=== PATIENT | male | born 1940 | race Caucasian/White ===

== ENCOUNTER 2017-01-31 16:22 | Emergency (ER) | payer MEDICARE, OTHER ==
[~2017-01-31] VITALS: Ht 172.7 cm; Wt 77.1 kg
[~2017-01-31 16:22] MED LIST: ACET325T16 PO; AMLO10TA2 PO; AMLO5TAB2 PO; AMOX1TAB61 PO; ATOR40TA PO; CHOL100013 PO; CLIN-44 PO; FOLI0.8T21 PO; FOLI1TAB16 PO; FURO-68 PO; HYDR-2678 PO; IBUP-1027 PO; INSU100V13 SQ; LATA2.5D3 EACHEYE; LOSA25TA4 PO; LOSA50TA6 PO; MECL12.52 PO; METO25TA9 PO; OMEG1CAP38 PO; POLY255P PO; [UNRECOGNIZED DRUG - OTHER] PO
[2017-01-31] MEDS ORDERED: FURO20TA3 PO (17:55)
--- NOTE | 2017-01-31 18:04 | PHYS DOC ---
Past Medical History Past Medical History: Diabetes-Type II, High Cholesterol, Hypertension Additional Past Medical Histor: "brain bleed" 12/2015 Past Surgical History: Coronary Bypass Surgery, Tonsillectomy Alcohol Use: None Drug Use: None Adult General Chief Complaint Chief Complaint: NAUSEA/VOMITING/DIARRHA HPI HPI Patient is a 76 year old male who presents with complaint of dizziness. The patient states that he had dizziness that started this morning, causing him to have difficulty with his balance. Patient states he had associated nausea and vomiting earlier today. Patient states currently his nausea and vomiting has resolved. Patient states that his dizziness has improved. 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 Patient has had difficulty with balance since his stroke. The patient states that he has a cane at home but he typically walks unassisted. Patient denies any headache, loss of vision, difficulty with speech or swallowing, or unilateral weakness. Patient states that his dizziness would worsen when he turned his head or tried to stand up too quickly. Review of Systems Review of Systems Constitutional: Dizziness, currently improved, Denies fever or chills [] Eyes: Denies change in visual acuity, redness, or eye pain [] HENT: Denies nasal congestion or sore throat [] Respiratory: Denies cough or shortness of breath [] Cardiovascular: No additional information not addressed in HPI [] GI: Nausea and vomiting, currently resolved, denies abdominal pain, bloody stools or diarrhea [] : Denies dysuria or hematuria [] Musculoskeletal: Denies back pain or joint pain [] Integument: Denies rash or skin lesions [] Neurologic: Denies headache, focal weakness or sensory changes [] Current Medications Current Medications Current Medications Medications (Trade) Dose Ordered Sig/Ирина Start Time Stop Time Status Last Admin Dose Admin Sodium Chloride (Iv Sodium Chloride 0.9% 500ml Bag) 500 ml @ 500 mls/hr 1X ONCE 01/31/17 18:15 01/31/17 19:14 DC 01/31/17 18:39 500 MLS/HR Allergies Allergies Allergies Coded Allergies Type Severity Reaction Last Updated Verified amiodarone Allergy Intermediate Hives 04/25/16 Yes ciprofloxacin Allergy Intermediate 03/14/16 Yes dofetilide Allergy Intermediate 03/14/16 Yes glimepiride Allergy Intermediate Photosensitivity 04/25/16 Yes Physical Exam Physical Exam Constitutional: Alert, afebrile, no acute distress. [] HENT: Normocephalic, atraumatic, bilateral external ears normal, oropharynx moist, no oral exudates, nose normal. [] Eyes: PERRLA, EOMI, conjunctiva normal, no discharge. [] Neck: Normal range of motion, no tenderness, supple, no stridor. [] Cardiovascular:Heart rate regular rhythm, no murmur [] Lungs & Thorax: Bilateral breath sounds clear to auscultation [] Abdomen: Bowel sounds normal, soft, no tenderness, no masses, no pulsatile masses. [] Skin: Warm, dry, no erythema, no rash. [] Back: No tenderness, no CVA tenderness. [] Extremities: No tenderness, no cyanosis, no clubbing, ROM intact, no edema. [] Neurologic: Alert and oriented X 3, normal motor function, normal sensory function, no focal deficits noted. [] Current Patient Data Vital Signs Vital Signs Date Time Temp Pulse Resp B/P Pulse Ox O2 Delivery O2 Flow Rate FiO2 01/31/17 20:45 85 21 139/64 98 Room Air 01/31/17 17:10 97.7 97.7 Lab Values Laboratory Tests Test 01/31/17 17:25 01/31/17 18:40 White Blood Count 9.5x10^3/uL (4.0-11.0) Red Blood Count 3.77x10^6/uL (4.30-5.70) L Hemoglobin 11.9g/dL (13.0-17.5) L Hematocrit 35.7% (39.0-53.0) L Mean Corpuscular Volume 95fL (79-100) Mean Corpuscular Hemoglobin 32pg (25-35) Mean Corpuscular Hemoglobin Concent 33g/dL (31-37) Red Cell Distribution Width 13.9% (11.5-14.5) Platelet Count 158x10^3/uL (140-400) Neutrophils (%) (Auto) 87% (31-73) H Lymphocytes (%) (Auto) 9% (24-48) L Monocytes (%) (Auto) 3% (0-9) Eosinophils (%) (Auto) 0% (0-3) Basophils (%) (Auto) 0% (0-3) Neutrophils # (Auto) 8.3x10^3uL (1.8-7.7) H Lymphocytes # (Auto) 0.9x10^3/uL (1.0-4.8) L Monocytes # (Auto) 0.3x10^3/uL (0.0-1.1) Eosinophils # (Auto) 0.0x10^3/uL (0.0-0.7) Basophils # (Auto) 0.0x10^3/uL (0.0-0.2) Segmented Neutrophils % 74% (35-66) H Band Neutrophils % 7% (0-9) Lymphocytes % 11% (24-48) L Atypical Lymphocytes % (Manual) 2% (0-0) H Monocytes % 5% (0-10) Basophils % 1% (0-3) Platelet Estimate Adequate (ADEQUATE) Giant Platelets Occ Sodium Level 140mmol/L (136-145) Potassium Level 3.8mmol/L (3.5-5.1) Chloride Level 101mmol/L (98-107) Carbon Dioxide Level 29mmol/L (21-32) Anion Gap 10 (6-14) Blood Urea Nitrogen 32mg/dL (8-26) H Creatinine 1.3mg/dL (0.7-1.3) Estimated GFR (Cockcroft-Gault) 53.4 BUN/Creatinine Ratio 25 (6-20) H Glucose Level 207mg/dL (70-99) H Calcium Level 9.5mg/dL (8.5-10.1) Magnesium Level 0.1mg/dL (1.8-2.4) L Total Bilirubin 0.4mg/dL (0.2-1.0) Aspartate Amino Transferase (AST) 22U/L (15-37) Alanine Aminotransferase (ALT) 33U/L (16-63) Alkaline Phosphatase 85U/L (46-116) Total Protein 9.1g/dL (6.4-8.2) H Albumin 3.9g/dL (3.4-5.0) Albumin/Globulin Ratio 0.8 (1.0-1.7) L Urine Collection Type Unknown Urine Color Yellow Urine Clarity Clear Urine pH 7.0 Urine Specific [place] 1.010 Urine Protein 100mg/dL (NEG-TRACE) Urine Glucose (UA) Negativemg/dL (NEG) Urine Ketones (Stick) Tracemg/dL (NEG) Urine Blood Negative (NEG) Urine Nitrite Negative (NEG) Urine Bilirubin Negative (NEG) Urine Urobilinogen Dipstick 0.2mg/dL (0.2 mg/dL) Urine Leukocyte Esterase Negative (NEG) Urine RBC Occ/HPF (0-2) Urine WBC 0/HPF (0-4) Urine Squamous Epithelial Cells Occ/LPF Urine Bacteria 0/HPF (0-FEW) Laboratory Tests 01/31/17 17:25 Laboratory Tests 01/31/17 17:25 EKG EKG Interpreted by me: Heart rate 90, atrial fibrillation, right bundle branch block , no acute ST/T-wave abnormalities present [] Radiology/Procedures Radiology/Procedures [facility] [address] [place] [address] IMAGING REPORT Signed PATIENT: ALEJANDRINA GRAY ACCOUNT: [id number] : 1940 LOCATION: ER AGE: 76 SEX: M EXAM STATUS: REG ER ORD. PHYSICIAN: JOSE L REYES MD REASON: dizziness, history of intracerebral hemorrhage PROCEDURE: HEAD WO CONTRAST INDICATION: 76-year-old male with dizziness, history of intra cerebral hemorrhage. COMPARISON: August 29, 2016 TECHNIQUE: Axial, noncontrast CT images obtained through the head. One or more of the following individualized dose reduction techniques were utilized for this examination: 1. Automated exposure control; 2. Adjustment of the mA and/or kV according to patient size; 3. Use of iterative reconstruction technique. FINDINGS: No acute intracranial process is identified, specifically no acute blood products, midline shift, mass effect or extra-axial fluid collections. Ventricles and sulci appear appropriate for patient's age. Basilar cisterns are maintained. Scattered periventricular and subcortical white matter low attenuation is re-demonstrated, suggestive of chronic microvascular ischemia. Probable lacunar infarct re-demonstrated in the right basal ganglia/subinsular region. The visualized paranasal sinuses are clear. Mastoid air cells are clear. No calvarial fracture is present. Overlying scalp is intact. IMPRESSION: No acute intracranial process or change from prior exam. Electronically signed by: Kylie Swan (Jan 31, 2017 18:38:26) DICTATED and SIGNED BY: KYLIE SWAN MD DATE: 01/31/17 1838 CC: JOSE L REYES MD; SHANKAR LORA ~ [] Course & Med Decision Making Course & Med Decision Making Pertinent Labs and Imaging studies reviewed. (See chart for details) Patient was given IV fluids in the emergency department. The patient's lab work shows mild dehydration and elevated blood sugar of 207. Patient states that he is currently on insulin therapy for diabetes and has an for him at home to treat his blood sugar. The patient states that he would like to go home. The patient ambulated in the emergency department without difficulty. Patient's also stated she felt comfortable taking the patient home at this time. I recommended that they follow up with the patient's primary doctor in 2-3 days and return to emergency department for any worsening symptoms. Patient was understanding and in agreement with treatment plan. Dragon Disclaimer Dragon Disclaimer This electronic medical record was generated, in whole or in part, using a voice recognition dictation system. Departure Departure Impression: Primary Impression: Dizziness Additional Impressions: Nausea and vomiting Dehydration Type 2 diabetes mellitus Disposition: 01 HOME, SELF-CARE Condition: IMPROVED Referrals: SHANKAR LORA (PCP) Patient Instructions: Dizziness, Nausea and Vomiting Additional Instructions: Follow-up in 2-3 days with your primary doctor. Return to emergency department for any worsening symptoms. Problem Qualifiers Additional Impressions: Nausea and vomiting Vomiting type: unspecified Vomiting Intractability: non-intractable Qualified Code: R11.2 - Nausea with vomiting, unspecified Type 2 diabetes mellitus Diabetes mellitus complication status: with hyperglycemia Diabetes mellitus shelter insulin use: with watermelon inspector use Qualified Code: E11.65 - Type 2 diabetes mellitus with hyperglycemia JOSE L REYES MD Jan 31, 2017 18:04
[2017-01-31] MEDS ORDERED: IV NORMAL SALINE 500ML BAG 500 ML IV ONE (18:15)
[2017-01-31 18:16] LABS: BASO % 0 % (0-3); EOS % 0 % (0-3); HEMATOCRIT 35.7 % (39.0-53.0); HEMOGLOBIN 11.9 g/dL (13.0-17.5); LYMPH # 0.9 x10^3/uL (1.0-4.8); LYMPH % 9 % (24-48); MEAN CORPUSCULAR HEMOGLOBIN 32 pg (25-35); MEAN CORPUSCULAR HGB CONC 33 g/dL (31-37); MEAN CORPUSCULAR VOLUME 95 fL (79-100); MONO % 3 % (0-9); NEUT % 87 % (31-73); PLATELET COUNT 158 x10^3/uL (140-400); RED BLOOD COUNT 3.77 x10^6/uL (4.30-5.70); RED CELL DISTRIBUTION WIDTH 13.9 % (11.5-14.5); WHITE BLOOD COUNT 9.5 x10^3/uL (4.0-11.0)
[2017-01-31 18:29] LABS: CALCIUM 9.5 mg/dL (8.5-10.1); CREATININE 1.3 mg/dL (0.7-1.3); GFR 53.4; POTASSIUM 3.8 mmol/L (3.5-5.1)
[2017-01-31 18:34] LABS: MAGNESIUM 0.1 mg/dL (1.8-2.4); TOTAL BILIRUBIN 0.4 mg/dL (0.2-1.0); TOTAL PROTEIN 9.1 g/dL (6.4-8.2)
[2017-01-31 18:39] LABS: % BASOS 1 % (0-3); PLT ESTIMATE ADEQUATE (ADEQUATE)
--- NOTE | 2017-01-31 18:39 | RAD ---
INDICATION: 76-year-old male with dizziness, history of intra cerebral hemorrhage. COMPARISON: August 29, 2016 TECHNIQUE: Axial, noncontrast CT images obtained through the head. One or more of the following individualized dose reduction techniques were utilized for this examination: 1. Automated exposure control; 2. Adjustment of the mA and/or kV according to patient size; 3. Use of iterative reconstruction technique. FINDINGS: No acute intracranial process is identified, specifically no acute blood products, midline shift, mass effect or extra-axial fluid collections. Ventricles and sulci appear appropriate for patient's age. Basilar cisterns are maintained. Scattered periventricular and subcortical white matter low attenuation is re-demonstrated, suggestive of chronic microvascular ischemia. Probable lacunar infarct re-demonstrated in the right basal ganglia/subinsular region. The visualized paranasal sinuses are clear. Mastoid air cells are clear. No calvarial fracture is present. Overlying scalp is intact. IMPRESSION: No acute intracranial process or change from prior exam. Electronically signed by: Ronda Swan (Jan 31, 2017 18:38:26)
[2017-01-31 18:41] LABS: ALBUMIN 3.9 g/dL (3.4-5.0); ALBUMIN/GLOBULIN RATIO 0.8 (1.0-1.7)
[2017-01-31 18:49] LABS: BILIRUBIN,URINE NEGATIVE (NEG); GLUCOSE,URINE NEGATIVE (NEG); NITRITE,URINE NEGATIVE (NEG); PROTEIN,URINE 100 mg/dL (NEG-TRACE); UROBILINOGEN,URINE 0.2 mg/dL (0.2 mg/dL)
[2017-01-31 18:56] LABS: BACTERIA,URINE 0 /HPF (0-FEW); RBC,URINE OCC /HPF (0-2); SQUAMOUS EPITHELIAL CELL,UR OCC /LPF; WBC,URINE 0 /HPF (0-4)
[2017-01-31 20:45] VITALS: BP 139/64
--- NOTE | 2017-02-01 06:08 | EKG ---
[facility] [address] [place] [address] Test Date: 2017-01-31 Test Time: 17:36:44 Pat Name: ALEJANDRINA GRAY Department: Room: Gender: M Winder Helper: : 1940 Requested By: JOSE L REYES Order Number: [id number] Reading MD: Measurements Intervals [place] Rate: 90 P: 180 DC: 256 QRS: -61 QRSD: 144 T: -13 QT: 406 QTc: 501 Interpretive Statements SINUS RHYTHM PROLONGED DC INTERVAL ABNORMAL LEFT AXIS DEVIATION LEFT ANTERIOR FASCICULAR BLOCK RIGHT BUNDLE BRANCH BLOCK BIFASCICULAR BLOCK RVH WITH REPOLARIZATION ABNORMALITY QRS(T) CONTOUR ABNORMALITY CONSIDER ANTEROSEPTAL MYOCARDIAL DAMAGE RI6.01 Unconfirmed report No previous ECG available for comparison
--- NOTE | 2017-02-01 08:43 | RAD ---
Portable chest, 01/31/2017: History: Dizziness and vomiting Comparison is made to a study from 04/25/2016. There has been a previous median sternotomy. The heart size and pulmonary vascularity are normal. There is calcific plaquing of the aorta. There is minimal parenchymal scarring. No pulmonary infiltrate is seen. There is no evidence of pleural fluid. IMPRESSION: 1. Aortic atherosclerosis. 2. No acute cardiopulmonary abnormality is detected.
== END 2017-01-31 20:55 | disposition home or self-care (01) ==
LOC: ER 16:22
DX: R42 Dizziness and giddiness (principal); R11.2 Nausea with vomiting, unspecified; E86.0 Dehydration; E11.9 Type 2 diabetes mellitus without complications; I10 Essential (primary) hypertension; E78.00 Pure hypercholesterolemia, unspecified; Z95.1 Presence of aortocoronary bypass graft; Z88.1 Allergy status to other antibiotic agents; Z88.8 Allergy status to other drugs, medicaments and biological substances
CPT/HCPCS: 36415; 70450; 71010; 80053; 81001; 83735; 85007; 85027; 93005; 96360; 99285; J7040

== ENCOUNTER → 2017-02-16 | Outpatient (CLI) | payer MEDICARE ==
[2017-01-31 20:45] VITALS: BP 139/64
[~2017-02-16] MED LIST changes: +FURO20TA3 PO
--- NOTE | 2017-02-16 18:01 | CARD ---
APPROVED REPORT EXAM: Two-dimensional and M-mode echocardiogram with Doppler and color Doppler. Other Information Quality : GoodHR: 76bpm Rhythm : Atrial Fibrillation INDICATION Aortic Valve Disease Aortic valve stenosis RISK FACTORS Hypertension 2D DIMENSIONS RVDd2.6 (2.9-3.5cm)Left Atrium(2D)4.5 (1.6-4.0cm) IVSd1.2 (0.7-1.1cm)Aortic Root(2D)3.3 (2.0-3.7cm) LVDd4.5 (3.9-5.9cm)LVOT Diameter2.2 (1.8-2.4cm) PWd1.2 (0.7-1.1cm)LVDs3.2 (2.5-4.0cm) FS (%) 28.6 %SV50.2 ml LVEF(%)55.2 (>50%) Aortic Valve AoV Peak Abdirizak.361.0cm/sAoV VTI81.8cm AO Peak GR.52.1mmHgLVOT Peak Abdirizak.99.6cm/s AO Mean GR.27mmHgAVA (VMAX)1.05cm2 Mitral Valve MV E Phuggrjq267.7cm/sMV E Peak Gr.8mmHg MV DECEL [id number] A Womffhlj95.2cm/s MV E Mean Gr.3mmHgE/A Ratio3.5 MV A Taavzbyj91ua Pulmonary Valve PV Peak Ixvvjaii69.7cm/s Tricuspid Valve TR P. Nywfzdrv069kk/sTR Peak Gr.30mmHg Pulmonary Vein S1 Juuhjcsi06.0cm/s LEFT VENTRICLE The left ventricle is normal size. There is mild concentric left ventricular hypertrophy. The left ve ntricular systolic function is normal and the ejection fraction is within normal range. The Ejection Fraction is 55%. There is normal LV segmental wall motion. Tissue Doppler imaging reveals mildly abno rmal left ventricular diastolic dysfunction. RIGHT VENTRICLE The right ventricle is normal size. There is normal right ventricular wall thickness. The right ventr icular systolic function is normal. ATRIA The left atrium is moderately dilated. The right atrium size is normal. The interatrial septum is int act with no evidence for an atrial septal defect or patent foramen ovale as noted on 2-D or Doppler i maging. AORTIC VALVE The aortic valve is severely sclerotic. Doppler and Color Flow revealed trace to mild aortic regurgit ation. There is moderate valvular aortic stenosis. Calculated aortic valve area is 1.1 cm2 with maxim um pressure gradient of 52 mmHg and mean pressure gradient of 29 mmHg. Dimensionless index is .26 mor e consistent with severe aortic stenosis. MITRAL VALVE Mitral annular calcification is mild. The mitral valve leaflets are thickened. There is no evidence o f mitral valve prolapse. There is no mitral valve stenosis. Doppler and Color Flow revealed mild mitr al regurgitation. TRICUSPID VALVE Doppler and Color Flow revealed mild tricuspid regurgitation. The pulmonary artery systolic pressure is estimated at 33 mmHg. There is mild pulmonary hypertension. PULMONIC VALVE Doppler and Color Flow revealed trace pulmonic valvular regurgitation. There is no pulmonic valvular stenosis. GREAT VESSELS The aortic root is normal in size. The ascending aorta is normal in size. The IVC is normal in size a nd collapses >50% with inspiration. PERICARDIAL EFFUSION There is no evidence of significant pericardial effusion. Critical Notification Critical Value: No <Conclusion> The left ventricular systolic function is normal and the ejection fraction is within normal range. Th e Ejection Fraction is 55%. There is normal LV segmental wall motion. There is moderate valvular aortic stenosis. Calculated aortic valve area is 1.1 cm2 with maximum pre ssure gradient of 52 mmHg and mean pressure gradient of 29 mmHg. Dimensionless index is .26 more cons istent with severe aortic stenosis. Doppler and Color Flow revealed mild mitral regurgitation.
== END | disposition home or self-care (01) ==
LOC: ECHO 08:31
PROVIDERS: ATTEND Internal Medicine Cardiovascular Disease
DX: I35.0 Nonrheumatic aortic (valve) stenosis (principal); I48.91 Unspecified atrial fibrillation; I10 Essential (primary) hypertension; I51.7 Cardiomegaly; I27.2 Other secondary pulmonary hypertension
CPT/HCPCS: 93306

== ENCOUNTER 2017-07-01 20:30 | Emergency (ER) | payer OTHER ==
[~2017-07-01] VITALS: Ht 172.7 cm; Wt 77.1 kg
[~2017-07-01 20:30] MED LIST changes: -CLIN-44 PO; +CLIN150C14 PO
--- NOTE | 2017-07-01 20:49 | PHYS DOC ---
Past Medical History Past Medical History: Diabetes-Type II, High Cholesterol, Hypertension Additional Past Medical Histor: "brain bleed" 12/2015 Past Surgical History: Coronary Bypass Surgery, Tonsillectomy Alcohol Use: None Drug Use: None Adult General Chief Complaint Chief Complaint: MULTIPLE COMPLAINTS [facility] HPI Patient is a 76 year old male presents ambulatory to the emergency department with complaints of redness to the right second toe. Patient states one month ago he had an infection in the toe was treated with Augmentin. He states he got better but June 27 he noticed redness to the toe so he saw a scheme technician. The scheme technician placed him on Augmentin (day 4 today). The patient states he has taken Augmentin for 4 days and the toe is not better. He states it is not more painful normal or red but he is concerned that it is not look better. Patient also complains of burning with urination, no abdominal pain, no flank pain. He denies chest pain, cough, shortness of breath. Review of Systems Review of Systems Constitutional: Denies fever or chills [] Eyes: Denies change in visual acuity, redness, or eye pain [] HENT: Denies nasal congestion or sore throat [] Respiratory: Denies cough or shortness of breath [] Cardiovascular: No additional information not addressed in HPI [] GI: Denies abdominal pain, nausea, vomiting, bloody stools or diarrhea [] : Dysuria Musculoskeletal: Denies back pain or joint pain [] Integument: Redness to right second toe Neurologic: Denies headache, focal weakness or sensory changes [] Endocrine: Denies polyuria or polydipsia [] Allergies Allergies Allergies Coded Allergies Type Severity Reaction Last Updated Verified amiodarone Allergy Intermediate Hives 04/25/16 Yes ciprofloxacin Allergy Intermediate 03/14/16 Yes dofetilide Allergy Intermediate 03/14/16 Yes glimepiride Allergy Intermediate Photosensitivity 04/25/16 Yes Physical Exam Physical Exam Constitutional: Well developed, well nourished, no acute distress, non-toxic appearance. [] HENT: Normocephalic, atraumatic, bilateral external ears normal, oropharynx moist, no oral exudates, nose normal. [] Eyes: PERRLA, EOMI, conjunctiva normal, no discharge. [] Neck: Normal range of motion, no tenderness, supple, no stridor. [] Cardiovascular:Heart rate regular rhythm, no murmur [] Lungs & Thorax: Bilateral breath sounds clear to auscultation [] Abdomen: Bowel sounds normal, soft, no tenderness, no masses, no pulsatile masses. [] Skin: Warm, dry, no erythema, no rash. [] Back: No tenderness, no CVA tenderness. [] Extremities: No tenderness, no cyanosis, no clubbing, ROM intact, no edema. [] Neurologic: Alert and oriented X 3, normal motor function, normal sensory function, no focal deficits noted. [] Psychologic: Affect normal, judgement normal, mood normal. [] Current Patient Data Vital Signs Vital Signs Date Time Temp Pulse Resp B/P (MAP) Pulse Ox O2 Delivery O2 Flow Rate FiO2 07/01/17 20:53 97.8 73 18 143/71 (95) 100 Room Air 97.8 Lab Values Laboratory Tests Test 07/01/17 20:46 07/01/17 20:50 Urine Collection Type Unknown Urine Color Yellow Urine Clarity Clear Urine pH 6.0 Urine Specific [place] <=1.005 Urine Protein Negative mg/dL (NEG-TRACE) Urine Glucose (UA) Negative mg/dL (NEG) Urine Ketones (Stick) Negative mg/dL (NEG) Urine Blood Negative (NEG) Urine Nitrite Negative (NEG) Urine Bilirubin Negative (NEG) Urine Urobilinogen Dipstick 0.2 mg/dL (0.2 mg/dL) Urine Leukocyte Esterase Negative (NEG) Urine RBC 3-5 /HPF (0-2) Urine WBC 0 /HPF (0-4) Urine Squamous Epithelial Cells None /LPF Urine Bacteria 0 /HPF (0-FEW) Urine Hyaline Casts Moderate /HPF Urine Mucus Pending White Blood Count 7.5 x10^3/uL (4.0-11.0) Red Blood Count 3.33 x10^6/uL (4.30-5.70) L Hemoglobin 10.7 g/dL (13.0-17.5) L Hematocrit 31.2 % (39.0-53.0) L Mean Corpuscular Volume 94 fL (79-100) Mean Corpuscular Hemoglobin 32 pg (25-35) Mean Corpuscular Hemoglobin Concent 34 g/dL (31-37) Red Cell Distribution Width 13.4 % (11.5-14.5) Platelet Count 188 x10^3/uL (140-400) Neutrophils (%) (Auto) 54 % (31-73) Lymphocytes (%) (Auto) 31 % (24-48) Monocytes (%) (Auto) 10 % (0-9) H Eosinophils (%) (Auto) 5 % (0-3) H Basophils (%) (Auto) 1 % (0-3) Neutrophils # (Auto) 4.0 x10^3uL (1.8-7.7) Lymphocytes # (Auto) 2.3 x10^3/uL (1.0-4.8) Monocytes # (Auto) 0.8 x10^3/uL (0.0-1.1) Eosinophils # (Auto) 0.3 x10^3/uL (0.0-0.7) Basophils # (Auto) 0.1 x10^3/uL (0.0-0.2) Sodium Level 138 mmol/L (136-145) Potassium Level 3.7 mmol/L (3.5-5.1) Chloride Level 102 mmol/L (98-107) Carbon Dioxide Level 28 mmol/L (21-32) Anion Gap 8 (6-14) Blood Urea Nitrogen 34 mg/dL (8-26) H Creatinine 1.4 mg/dL (0.7-1.3) H Estimated GFR (Cockcroft-Gault) 49.0 BUN/Creatinine Ratio 24 (6-20) H Glucose Level 150 mg/dL (70-99) H Calcium Level 8.5 mg/dL (8.5-10.1) Total Bilirubin 0.3 mg/dL (0.2-1.0) Aspartate Amino Transferase (AST) 21 U/L (15-37) Alanine Aminotransferase (ALT) 35 U/L (16-63) Alkaline Phosphatase 77 U/L (46-116) Total Protein 8.5 g/dL (6.4-8.2) H Albumin 3.4 g/dL (3.4-5.0) Albumin/Globulin Ratio 0.7 (1.0-1.7) L Laboratory Tests 07/01/17 20:50 Laboratory Tests 07/01/17 20:50 EKG EKG [] Radiology/Procedures Radiology/Procedures [] Course & Med Decision Making Course & Med Decision Making Pertinent Labs and Imaging studies reviewed. (See chart for details) Right foot x-ray without acute bony changes [] Dragon Disclaimer Dragon Disclaimer This electronic medical record was generated, in whole or in part, using a voice recognition dictation system. Departure Departure Impression: Primary Impression: Cellulitis of second toe of right foot Disposition: HOME, SELF-CARE Condition: STABLE Referrals: DRU MUSE MD (PCP) Patient Instructions: Cellulitis Additional Instructions: Continue Augmentin as prescribed by the scheme technician. Please follow-up with the scheme technician in one to 2 days. DEDI BACA [employer]AGE LOAN FUNDER Jul 01, 2017 20:48
[2017-07-01 21:00] LABS: BASO # 0.1 x10^3/uL (0.0-0.2); BASO % 1 % (0-3); EOS % 5 % (0-3); HEMATOCRIT 31.2 % (39.0-53.0); HEMOGLOBIN 10.7 g/dL (13.0-17.5); LYMPH # 2.3 x10^3/uL (1.0-4.8); LYMPH % 31 % (24-48); MEAN CORPUSCULAR HEMOGLOBIN 32 pg (25-35); MEAN CORPUSCULAR HGB CONC 34 g/dL (31-37); MEAN CORPUSCULAR VOLUME 94 fL (79-100); MONO % 10 % (0-9); NEUT % 54 % (31-73); PLATELET COUNT 188 x10^3/uL (140-400); RED BLOOD COUNT 3.33 x10^6/uL (4.30-5.70); RED CELL DISTRIBUTION WIDTH 13.4 % (11.5-14.5); WHITE BLOOD COUNT 7.5 x10^3/uL (4.0-11.0)
[2017-07-01 21:07] LABS: BILIRUBIN,URINE NEGATIVE (NEG); GLUCOSE,URINE NEGATIVE (NEG); NITRITE,URINE NEGATIVE (NEG); PROTEIN,URINE NEGATIVE (NEG-TRACE); UROBILINOGEN,URINE 0.2 mg/dL (0.2 mg/dL)
[2017-07-01 21:14] LABS: CALCIUM 8.5 mg/dL (8.5-10.1); CREATININE 1.4 mg/dL (0.7-1.3); POTASSIUM 3.7 mmol/L (3.5-5.1)
[2017-07-01 21:19] LABS: WBC,URINE 0 /HPF (0-4)
[2017-07-01 21:20] LABS: BACTERIA,URINE 0 /HPF (0-FEW)
[2017-07-01 21:20] LABS: ALBUMIN 3.4 g/dL (3.4-5.0); ALBUMIN/GLOBULIN RATIO 0.7 (1.0-1.7); TOTAL BILIRUBIN 0.3 mg/dL (0.2-1.0); TOTAL PROTEIN 8.5 g/dL (6.4-8.2)
[2017-07-01 21:31] VITALS: BP 129/67
--- NOTE | 2017-07-02 07:52 | RAD ---
Indication pain and swelling for one month. History of diabetes. AP oblique and lateral views of the right foot were obtained and are compared to an examination 11/09/2016. 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 No acute bony finding is seen. Vascular calcification is noted. IMPRESSION: No acute bony finding
== END 2017-07-01 21:44 | disposition home or self-care (01) ==
LOC: ER 20:30
DX: L03.031 Cellulitis of right toe (principal); R30.0 Dysuria; I10 Essential (primary) hypertension; E78.00 Pure hypercholesterolemia, unspecified; E11.9 Type 2 diabetes mellitus without complications; Z95.1 Presence of aortocoronary bypass graft; Z88.8 Allergy status to other drugs, medicaments and biological substances; Z88.1 Allergy status to other antibiotic agents
CPT/HCPCS: 36415; 73630; 80053; 81001; 85027; 99285

== ENCOUNTER 2017-09-11 16:40 | Emergency (ER) | payer OTHER ==
[~2017-09-11] VITALS: Ht 172.7 cm; Wt 74.8 kg
[~2017-09-11 16:40] MED LIST changes: +METO-239 PO; -METO25TA9 PO
--- NOTE | 2017-09-11 16:59 | PHYS DOC ---
Past Medical History Past Medical History: Diabetes-Type II, High Cholesterol, Hypertension Additional Past Medical Histor: "brain bleed" 12/2015 Past Surgical History: Coronary Bypass Surgery, Tonsillectomy Alcohol Use: None Drug Use: None Adult General Chief Complaint Chief Complaint: LOWER EXTREMITY SWELLING [facility] HPI Patient is a 76 year old male who presents with right second toe swelling. He states he's noticed about 2 months ago when he saw an urgent care and they gave him Keflex and then he saw his tailor's aide who gave him another antibiotic and he states he went back to the urgent care and they gave him another antibiotic. He states it was well until about 3 or 4 days ago and it started swelling again and becoming painful. He denies any nausea vomiting fevers or chills. He states he has some dysuria occasionally. He is concerned because he had to have his first toe on his right foot amputated because of infection. Review of Systems Review of Systems Constitutional: Denies fever or chills [] Eyes: Denies change in visual acuity, redness, or eye pain [] HENT: Denies nasal congestion or sore throat [] Respiratory: Denies cough or shortness of breath [] Cardiovascular: No additional information not addressed in HPI [] GI: Denies abdominal pain, nausea, vomiting, bloody stools or diarrhea [] : Denies dysuria or hematuria [] Musculoskeletal: Denies back pain or joint pain [] Integument: Denies rash or skin lesions [] Neurologic: Denies headache, focal weakness or sensory changes [] Endocrine: Denies polyuria or polydipsia [] Allergies Allergies Allergies Coded Allergies Type Severity Reaction Last Updated Verified amiodarone Allergy Intermediate Hives 04/25/16 Yes ciprofloxacin Allergy Intermediate 03/14/16 Yes dofetilide Allergy Intermediate 03/14/16 Yes glimepiride Allergy Intermediate Photosensitivity 04/25/16 Yes losartan Allergy Intermediate rash 09/11/17 Yes rivaroxaban Allergy Intermediate 09/11/17 Yes Physical Exam Physical Exam Constitutional: Well developed, well nourished, no acute distress, non-toxic appearance. [] HENT: Normocephalic, atraumatic, bilateral external ears normal, oropharynx moist, no oral exudates, nose normal. [] Eyes: PERRLA, EOMI, conjunctiva normal, no discharge. [] Neck: Normal range of motion, no tenderness, supple, no stridor. [] Cardiovascular:Heart rate regular rhythm, no murmur [] Lungs & Thorax: Bilateral breath sounds clear to auscultation [] Abdomen: Bowel sounds normal, soft, no tenderness, no masses, no pulsatile masses. [] Skin: Warm, dry, no erythema, no rash. [] Back: No tenderness, no CVA tenderness. [] Extremities: No tenderness, no cyanosis, no clubbing, ROM intact, no edema. Mild swelling and redness at the tip of the second toe that is in the shape of a hammertoe of the right foot, amputation of the great toe same foot noted Neurologic: Alert and oriented X 3, normal motor function, normal sensory function, no focal deficits noted. [] Psychologic: Affect normal, judgement normal, mood normal. [] Current Patient Data Vital Signs Vital Signs Date Time Temp Pulse Resp B/P (MAP) Pulse Ox O2 Delivery O2 Flow Rate FiO2 09/11/17 18:52 74 18 150/72 (98) 96 Room Air 09/11/17 17:04 98.5 98.5 Lab Values Laboratory Tests Test 09/11/17 17:15 09/11/17 18:00 Urine Collection Type Void Urine Color Yellow Urine Clarity Clear Urine pH 7.0 Urine Specific [place] <=1.005 Urine Protein 30 mg/dL (NEG-TRACE) Urine Glucose (UA) Negative mg/dL (NEG) Urine Ketones (Stick) Negative mg/dL (NEG) Urine Blood Negative (NEG) Urine Nitrite Negative (NEG) Urine Bilirubin Negative (NEG) Urine Urobilinogen Dipstick 0.2 mg/dL (0.2 mg/dL) Urine Leukocyte Esterase Negative (NEG) Urine RBC 0 /HPF (0-2) Urine WBC 0 /HPF (0-4) Urine Squamous Epithelial Cells Occ /LPF Urine Bacteria 0 /HPF (0-FEW) White Blood Count 6.4 x10^3/uL (4.0-11.0) Red Blood Count 3.21 x10^6/uL (4.30-5.70) L Hemoglobin 10.2 g/dL (13.0-17.5) L Hematocrit 29.6 % (39.0-53.0) L Mean Corpuscular Volume 92 fL (79-100) Mean Corpuscular Hemoglobin 32 pg (25-35) Mean Corpuscular Hemoglobin Concent 35 g/dL (31-37) Red Cell Distribution Width 13.7 % (11.5-14.5) Platelet Count 156 x10^3/uL (140-400) Neutrophils (%) (Auto) 63 % (31-73) Lymphocytes (%) (Auto) 24 % (24-48) Monocytes (%) (Auto) 9 % (0-9) Eosinophils (%) (Auto) 4 % (0-3) H Basophils (%) (Auto) 1 % (0-3) Neutrophils # (Auto) 4.0 x10^3uL (1.8-7.7) Lymphocytes # (Auto) 1.5 x10^3/uL (1.0-4.8) Monocytes # (Auto) 0.6 x10^3/uL (0.0-1.1) Eosinophils # (Auto) 0.2 x10^3/uL (0.0-0.7) Basophils # (Auto) 0.1 x10^3/uL (0.0-0.2) Sodium Level 137 mmol/L (136-145) Potassium Level 4.5 mmol/L (3.5-5.1) Chloride Level 101 mmol/L (98-107) Carbon Dioxide Level 28 mmol/L (21-32) Anion Gap 8 (6-14) Blood Urea Nitrogen 29 mg/dL (8-26) H Creatinine 1.3 mg/dL (0.7-1.3) Estimated GFR (Cockcroft-Gault) 53.4 BUN/Creatinine Ratio 22 (6-20) H Glucose Level 141 mg/dL (70-99) H Calcium Level 9.2 mg/dL (8.5-10.1) Total Bilirubin 0.3 mg/dL (0.2-1.0) Aspartate Amino Transferase (AST) 19 U/L (15-37) Alanine Aminotransferase (ALT) 30 U/L (16-63) Alkaline Phosphatase 88 U/L (46-116) Total Protein 8.6 g/dL (6.4-8.2) H Albumin 3.4 g/dL (3.4-5.0) Albumin/Globulin Ratio 0.7 (1.0-1.7) L Laboratory Tests 09/11/17 18:00 Laboratory Tests 09/11/17 18:00 EKG EKG [] Radiology/Procedures Radiology/Procedures [] Impressions: Right toe pain/cellulitis Course & Med Decision Making Course & Med Decision Making Pertinent Labs and Imaging studies reviewed. (See chart for details) 3 views of the right foot doesn't show acute abnormality's. His labs also nonacute he doesn't have fever or any other abnormalities. His toes slightly swollen and erythematous, he's been using Keflex, will have him stop this and start clindamycin for 7 days. Return precautions given. He is agreeable to the plan and being discharged in stable condition at this time. Dragon Disclaimer Dragon Disclaimer This electronic medical record was generated, in whole or in part, using a voice recognition dictation system. Departure Departure Impression: Primary Impression: Cellulitis Disposition: 01 HOME, SELF-CARE Referrals: DRU MUSE MD (PCP) Patient Instructions: Cellulitis Additional Instructions: Your labs do not show any signs of infection and the x-ray does not show anything broken. Since she's been on Keflex for a while we will switch you to clindamycin for the next 7 days. Please follow-up to primary care physician after he finished 7 days of clindamycin. Return back to ER for high fevers, worsening swelling of your toe, or other concerns. Scripts Clindamycin Hcl (CLINDAMYCIN HCL) 300 Mg Capsule 1 CAP PO TID, #21 CAP Prov: JUAN FRANCISCO KEITH MD 09/11/17 JUAN FRANCISCO KEITH MD Sep 11, 2017 16:59
[2017-09-11] MEDS ORDERED: CHOL10003 PO (17:35)
[2017-09-11] MEDS ORDERED: ATOR20TA PO (17:35)
[2017-09-11] MEDS ORDERED: FOLI0.8T21 PO (17:35)
[2017-09-11] MEDS ORDERED: ASPI-482 PO (17:35)
[2017-09-11] MEDS ORDERED: FOLI1TAB16 PO (17:35)
[2017-09-11] MEDS ORDERED: FURO20TA3 PO (17:35)
[2017-09-11] MEDS ORDERED: INSU100V13 SQ (17:35)
[2017-09-11 17:48] LABS: BILIRUBIN,URINE NEGATIVE (NEG); GLUCOSE,URINE NEGATIVE (NEG); NITRITE,URINE NEGATIVE (NEG); PROTEIN,URINE 30 mg/dL (NEG-TRACE); UROBILINOGEN,URINE 0.2 mg/dL (0.2 mg/dL)
[2017-09-11 17:54] LABS: BACTERIA,URINE 0 /HPF (0-FEW); RBC,URINE 0 /HPF (0-2); SQUAMOUS EPITHELIAL CELL,UR OCC /LPF; WBC,URINE 0 /HPF (0-4)
[2017-09-11 18:12] LABS: BASO # 0.1 x10^3/uL (0.0-0.2); BASO % 1 % (0-3); EOS % 4 % (0-3); HEMATOCRIT 29.6 % (39.0-53.0); HEMOGLOBIN 10.2 g/dL (13.0-17.5); LYMPH # 1.5 x10^3/uL (1.0-4.8); LYMPH % 24 % (24-48); MEAN CORPUSCULAR HEMOGLOBIN 32 pg (25-35); MEAN CORPUSCULAR HGB CONC 35 g/dL (31-37); MEAN CORPUSCULAR VOLUME 92 fL (79-100); MONO % 9 % (0-9); NEUT % 63 % (31-73); PLATELET COUNT 156 x10^3/uL (140-400); RED BLOOD COUNT 3.21 x10^6/uL (4.30-5.70); RED CELL DISTRIBUTION WIDTH 13.7 % (11.5-14.5); WHITE BLOOD COUNT 6.4 x10^3/uL (4.0-11.0)
[2017-09-11 18:25] LABS: CALCIUM 9.2 mg/dL (8.5-10.1); CREATININE 1.3 mg/dL (0.7-1.3); GFR 53.4; POTASSIUM 4.5 mmol/L (3.5-5.1)
[2017-09-11 18:31] LABS: ALBUMIN 3.4 g/dL (3.4-5.0); ALBUMIN/GLOBULIN RATIO 0.7 (1.0-1.7); TOTAL BILIRUBIN 0.3 mg/dL (0.2-1.0); TOTAL PROTEIN 8.6 g/dL (6.4-8.2)
[2017-09-11] MEDS ORDERED: CLIN300C8 PO (19:10)
[2017-09-11 19:25] VITALS: BP 150/72
--- NOTE | 2017-09-12 08:31 | RAD ---
EXAM: Right foot 3 views. HISTORY: Right foot pain and swelling. COMPARISON: 07/01/2017. FINDINGS: The 1st toe has been amputated through the proximal phalanx. The soft tissues of the stump are somewhat irregular. There is no clear underlying cortical erosion. And also suspected along the distal 2nd digit. The 2nd distal interphalangeal joint is flexed. There is erosion of the tuft of the 2nd distal phalanx, and likely the head of the 2nd middle phalanx suggesting acute osteomyelitis. No fractures are identified. Atherosclerotic calcifications are noted. There is a moderate plantar calcaneal spur. IMPRESSION: 1. Findings concerning for acute osteomyelitis of the 2nd distal and middle phalanges.
[2017-09-16] MEDS ORDERED: AMLO5TAB2 PO (12:07)
== END 2017-09-11 19:27 | disposition home or self-care (01) ==
LOC: ER 16:40
DX: L03.031 Cellulitis of right toe (principal); R30.0 Dysuria; E11.9 Type 2 diabetes mellitus without complications; E78.00 Pure hypercholesterolemia, unspecified; I10 Essential (primary) hypertension; Z95.1 Presence of aortocoronary bypass graft; Z88.1 Allergy status to other antibiotic agents; Z88.8 Allergy status to other drugs, medicaments and biological substances
CPT/HCPCS: 36415; 73630; 80053; 81001; 85025; 99285

== ENCOUNTER → 2017-10-05 | Outpatient (CLI) | payer OTHER ==
[2017-09-19 11:00] VITALS: BP 124/80
[~2017-10-05] MED LIST changes: +AMOX1TAB11 PO; +ASPI-482 PO; +ATOR20TA PO; +CHOL10003 PO; +CLIN300C8 PO
--- NOTE | 2017-10-05 10:44 | CARD ---
APPROVED REPORT EXAM: Two-dimensional and M-mode echocardiogram with Doppler and color Doppler. Other Information Quality : Good INDICATION Aortic Valve Disease 2D DIMENSIONS RVDd2.9 (2.9-3.5cm)Left Atrium(2D)3.6 (1.6-4.0cm) IVSd1.5 (0.7-1.1cm)Aortic Root(2D)3.0 (2.0-3.7cm) LVDd4.8 (3.9-5.9cm)LVOT Diameter2.2 (1.8-2.4cm) PWd1.0 (0.7-1.1cm)LVDs3.4 (2.5-4.0cm) FS (%) 29.0 %SV57.7 ml LVEF(%)55.0 (>50%) M-Mode DIMENSIONS Aortic Cusp Exc0.83 (1.5-2.0cm) Aortic Valve AoV Peak Abdirizak.320.0cm/sAoV VTI76.2cm AO Peak GR.41.0mmHgLVOT Peak Abdirizak.72.6cm/s LVOT VTI 19.88cmAO Mean GR.23mmHg ALFREDO (VMAX)0.83ed4WVU (VTI)1.05cm2 AI P 1/2 Bycs092gv Mitral Valve MV E Oowivcrl203.0cm/sMV DECEL [id number] MV YNL54ioKAB (PHT)4.08cm2 TDI E/Lateral E'26.6E/Medial E'30.0 Tricuspid Valve TR P. Fnwpxhms244dc/sRAP LRYIKECE5hdKb TR Peak Gr.23vhLgYSTJ26fmKq LEFT VENTRICLE The left ventricle is normal size. There is mild asymmetric septal hypertrophy. The left ventricular systolic function is normal and the ejection fraction is within normal range. The Ejection Fraction i s 55-60%. There is normal LV segmental wall motion. Tissue Doppler imaging reveals moderate left vent ricular diastolic dysfunction. RIGHT VENTRICLE The right ventricle is normal size. The right ventricular systolic function is normal. ATRIA The left atrium size is normal. The right atrium size is normal. The interatrial septum is intact wit h no evidence for an atrial septal defect or patent foramen ovale as noted on 2-D or Doppler imaging. AORTIC VALVE The aortic valve is calcified and displays decreased opening. Doppler and Color Flow revealed mild ao rtic regurgitation. Calculated aortic valve area is 1.06 cm2 with maximum pressure gradient of 41 mmH g and mean pressure gradient of 23 mmHg. Doppler and color-flow analysis revealed moderate aortic jan nosis. Based on AV VTI index, consistent with SEVERE aortic stenosis (Suspect low gradient, normal fl ow) MITRAL VALVE The mitral valve is calcified but opens well. Mitral annular calcification is mild. There is no evide nce of mitral valve prolapse. There is no mitral valve stenosis. Doppler and Color-flow revealed mild mitral regurgitation. TRICUSPID VALVE The tricuspid valve is normal in structure and function. Doppler and Color Flow revealed mild tricusp id regurgitation. There is moderate pulmonary hypertension. The PA pressure was estimated at 49 mmHg. There is no tricuspid valve stenosis. PULMONIC VALVE Doppler and Color Flow revealed mild pulmonic valvular regurgitation. There is no pulmonic valvular s tenosis. GREAT VESSELS The aortic root is normal in size. The ascending aorta is normal in size. The IVC is normal in size a nd collapses >50% with inspiration. PERICARDIAL EFFUSION There is no evidence of significant pericardial effusion. Critical Notification Critical Value: No <Conclusion> The left ventricular systolic function is normal and the ejection fraction is within normal range. Th e Ejection Fraction is 55-60%. There is normal LV segmental wall motion. Calculated aortic valve area is 1.06 cm2 with maximum pressure gradient of 41 mmHg and mean pressure gradient of 23 mmHg. Doppler and color-flow analysis revealed moderate aortic stenosis. Based on AV V TI index, consistent with SEVERE aortic stenosis (Suspect low gradient, normal flow) Doppler and Color Flow revealed mild tricuspid regurgitation. There is moderate pulmonary hypertensi on. The PA pressure was estimated at 49 mmHg.
== END | disposition home or self-care (01) ==
LOC: ECHO 07:41
PROVIDERS: ATTEND Internal Medicine Cardiovascular Disease
DX: I35.0 Nonrheumatic aortic (valve) stenosis (principal); I34.0 Nonrheumatic mitral (valve) insufficiency; I27.20 Pulmonary hypertension, unspecified
CPT/HCPCS: 93306

== ENCOUNTER → 2017-10-22 | Outpatient (CLI) | payer OTHER ==
[~2017-10-22] VITALS: Ht 172.7 cm; Wt 74.8 kg
[2017-10-22] VITALS (9 sets, daily range): BP systolic 97–145; BP diastolic 53–76
[~2017-10-22] MED LIST changes: +ACETYLCYSTEINE 20% ORAL SOLN 600 MG/3 ML SYRINGE. PO ONE; +HEPARIN for IV BOLUS 10,000 UNIT/10 ML VIAL. IV ONE; +HEPARIN for IV BOLUS 10,000 UNIT/10 ML VIAL. ONE; +IODIXANOL 320 MG/ML 100 ML VIAL. IART ONE; +IODIXANOL 320 MG/ML 100 ML VIAL. ONE; +LIDOCAINE 2% 20 ML VIAL. IJ ONE; +LIDOCAINE 2% 20 ML VIAL. ONE; +MIDAZOLAM HCL/PF 2 MG/2 ML VIAL. IV ONE; +MIDAZOLAM HCL/PF 2 MG/2 ML VIAL. ONE; +SODIUM BICARBONATE VIAL 150 MEQ in IV STERILE WATER 1,000 ML IV ONE; +fentaNYL PF VIAL 100 MCG/2 ML VIAL IV ONE; +fentaNYL PF VIAL 100 MCG/2 ML VIAL ONE
[2017-10-22 07:36] LABS: HEMATOCRIT 34.5 % (39.0-53.0); HEMOGLOBIN 11.7 g/dL (13.0-17.5); RED BLOOD COUNT 3.7 x10^6/uL (4.30-5.70); RED CELL DISTRIBUTION WIDTH 14.3 % (11.5-14.5); WHITE BLOOD COUNT 6.8 x10^3/uL (4.0-11.0)
[2017-10-22 07:43] LABS: CALCIUM 9.4 mg/dL (8.5-10.1); CREATININE 1.4 mg/dL (0.7-1.3); POTASSIUM 3.9 mmol/L (3.5-5.1)
[2017-10-22 07:49] LABS: INR 1.2 (0.8-1.1)
--- NOTE | 2017-10-22 10:36 | PDOC ---
MODERATE SEDATION ASSESSMENT RISKS/ALTERNATIVES Risks/Alternatives Risks and alternatives of this type of sedation and procedure discussed with: RISK/ALTERNATIVES: Patient H & P ON CHART H & P H & P on chart and reviewed for co-morbid conditions and appropriate labs. H&P ON CHART: Yes STATUS PREG STATUS ASSESSED: N/A MEDS/ALLERGIES REVIEWED Meds/Allergies Reviewed Medications and Allergies including time and route of recently administered narcotics and sedatives. MEDS/ALLERGIES REVIEWED: Yes ASA RATING ASA RATING: III AIRWAY ASSESSMENT Airway Assessment Airway patency, oral function limitations, presence of caps, crowns, dentures, partials, and ability to extend neck assessed. AIRWAY ASSESSMENT: Yes MALLAMPATI SCORE MALLAMPATI SCORE: II PRE-SEDATION ASSESSMENT PRE-SEDATION ASSESSMENT: Yes JESSICA DO MD Oct 22, 2017 10:36
--- NOTE | 2017-10-23 08:48 | CARD ---
APPROVED REPORT Procedure(s) performed: LHC/RHC/Coronary/Bypass angiography. Moderate sedation: 71 minutes HISTORY The patient is a 76 year-old male with a history of : renal failure without dialysis, coronary artery disease, tobacco history() , hypertension, previous CABG (The CABG date was ), dyslipidemia. INDICATION The indication(s) include : atypical chest pain , murmur, atrial fibrillation, dyspnea. PROCEDURE NARRATIVE The patient was brought electively to the cardiac catheterization lab. A timeout was performed confi rming the patient's name, date of , procedure, and site of procedure. All necessary personnel w ere wearing the appropriate protective equipment and radiation monitor devices. After explaining the risks and benefits of the procedure and alternatives, informed consent was obtained. (See nursing no haley for medications administered). The right groin was sterilely prepped and draped in the usual fas hion. The right groin was infiltrated with 20 mL of 2% lidocaine for subcutaneous anesthesia. A 6 F sheath was inserted into the right femoral artery without difficulty via the modified seldinger techn ique with an 18G needle and a J-tipped guidewire. Next, an 8Fr sheath was inserted in the right commo n femoral vein in similar fashion without difficulty. A PA catheter was then advanced through the right heart chambers, pressures and saturations were obta ined. Subsequently, right and left coronary angiography was performed using standard JR4 and JL4 diag nostic catheters. Next, with an AL1 and straight tipped guide wire, the aortic valve was crossed and subsequently, the AL1 catheter was used to exchange for a J-tipped guide wire over which a dual lumen [place] pigtail catheter was placed in the LV. Simultaneous LV/AO pressures were obtained. Left v entricular end diastolic pressure was obtained with a pigtail catheter and pullback was performed and there was no evidence of drift. HEMODYNAMICS: LVEDP 5 mm Hg AO: 120/75 25 mm Hg gradient across aortic valve. Calculated ALFREDO: 1.08 cm2 PCWP: 5 mm Hg PA: 25/12/15 RV: 27/9/12 RA: 5 mm Hg Te: 5.2 L/min Fdc: 2.75 PA saturation: 71.9% FA saturation: 98% LEFT VENTRICULOGRAM: Deferred due to known EF and CKD. CORONARY ANGIOGRAPHY: LM is a large caliber vessel with a mid body 20% stenosis. LAD is a large caliber calcified ectatic vessel with a mid subtotal occlusion. The distal vessel is s een to fill via a patent BOSTON graft, the very apical vessel is small with about 50% stenosis. Severeal small caliber diagonal vessels have mild diffuse disease. LCx is a large caliber ectactic calcified vessel with a mid to distal 95% stenosis. The distal vessel (LPL/PDA) is seen to fill faintly and has moderate disease of upto 50% OM1 is a very small caliber obtuse marginal vessel without disease. OM2 is a small caliber vessel with what appears to be competitive flow from a graft. The distal vesse l is not well visualized. RCA is a small to moderate caliber(co-dominant) vessel with a proximal to mid 100% occlusion. The dis nadine vessel and PDA are seen to fill via left to right septal and apical/epicardial collaterals. The distal RPL is faintly visualized on graft injection and appears to be free of disease distal to t he graft anastomosis. BYPASS ANGIOGRAPHY: BOSTON to LAD - Widely patent without anastomotic stenosis. SVG to Ramus - Widely patent vessel with ectasia but no anastomotic stenosis. SVG to OM2 - Patent, but this appears to originate like a right sided graft but is actually attached to the OM2. Conclusion 1. Normal biventricular filling pressures. 2. No pulmonary HTN 3. Moderate aortic stenosis - MG 25 mm Hg, ALFREDO 1.08 cm2 4. Severe three vessel coronary artery disease. 5. 3/3 grafts patents (Graft anatomy unknown, patient reported 4 grafts, only 3 visualized but due to CKD, further graft assessment was deferred). Recommendations Aggressive Medical Therapy
== END | disposition home or self-care (01) ==
LOC: CCL 06:08
PROVIDERS: ATTEND Internal Medicine Cardiovascular Disease
DX: I25.10 Atherosclerotic heart disease of native coronary artery without angina pectoris (principal); I12.9 Hypertensive chronic kidney disease with stage 1 through stage 4 chronic kidney disease, or unspecified chronic kidney disease; N18.9 Chronic kidney disease, unspecified; E78.5 Hyperlipidemia, unspecified; Z88.3 Allergy status to other anti-infective agents; Z88.8 Allergy status to other drugs, medicaments and biological substances
CPT/HCPCS: 36415; 80048; 85027; 85610; 93461; 99152; 99153; C1769; C1771; C1773; C1892; J1644; J2250; J3010; G0269; J2001

== ENCOUNTER 2018-02-20 00:31 | Emergency (ER) | payer OTHER ==
[2018-02-20 02:10] LABS: ADD MAN DIFF? NO
[2018-02-20 02:12] LABS: BASO # 0.1 x10^3/uL (0.0-0.2); BASO % 1 % (0-3); EOS # 0.3 x10^3/uL (0.0-0.7); EOS % 4 % (0-3); HEMATOCRIT 32.1 % (39.0-53.0); HEMOGLOBIN 10.9 g/dL (13.0-17.5); LYMPH # 1.9 x10^3/uL (1.0-4.8); LYMPH % 27 % (24-48); MEAN CORPUSCULAR HEMOGLOBIN 32 pg (25-35); MEAN CORPUSCULAR HGB CONC 34 g/dL (31-37); MEAN CORPUSCULAR VOLUME 95 fL (79-100); MONO # 0.6 x10^3/uL (0.0-1.1); MONO % 8 % (0-9); NEUT # 4.4 x10^3uL (1.8-7.7); NEUT % 61 % (31-73); PLATELET COUNT 165 x10^3/uL (140-400); RED BLOOD COUNT 3.37 x10^6/uL (4.30-5.70); RED CELL DISTRIBUTION WIDTH 13.3 % (11.5-14.5); WHITE BLOOD COUNT 7.2 x10^3/uL (4.0-11.0)
[2018-02-20 02:20] LABS: TROPONIN BY ISTAT 0.03 ng/ml (<0.08)
[2018-02-20 02:21] LABS: ANION GAP 6 (6-14); BLOOD UREA NITROGEN 23 mg/dL (8-26); BUN/CREATININE RATIO 18 (6-20); CALCIUM 8.9 mg/dL (8.5-10.1); CARBON DIOXIDE 29 mmol/L (21-32); CHLORIDE 105 mmol/L (98-107); CREATININE 1.3 mg/dL (0.7-1.3); GFR 53.3; GLUCOSE 135 mg/dL (70-99); POTASSIUM 4.2 mmol/L (3.5-5.1); SODIUM 140 mmol/L (136-145)
[2018-02-20 02:27] LABS: ALBUMIN 3.3 g/dL (3.4-5.0); ALBUMIN/GLOBULIN RATIO 0.7 (1.0-1.7); ALK PHOS 85 U/L (46-116); ALT (SGPT) 40 U/L (16-63); AST (SGOT) 26 U/L (15-37); TOTAL BILIRUBIN 0.3 mg/dL (0.2-1.0)
== END 2018-02-20 03:33 | disposition home or self-care (01) ==
LOC: ER 00:31
DX: R13.10 Dysphagia, unspecified (principal); R06.02 Shortness of breath; J02.9 Acute pharyngitis, unspecified; I11.0 Hypertensive heart disease with heart failure; I50.9 Heart failure, unspecified; I70.0 Atherosclerosis of aorta; E78.00 Pure hypercholesterolemia, unspecified; E11.9 Type 2 diabetes mellitus without complications; Z88.1 Allergy status to other antibiotic agents; Z88.8 Allergy status to other drugs, medicaments and biological substances
CPT/HCPCS: 36415; 71045; 80053; 84484; 85025; 93005; 99285-25

== ENCOUNTER → 2018-03-20 | Outpatient (CLI) | payer OTHER ==
[2018-03-20 10:16] LABS: ADD MAN DIFF? NO
[2018-03-20 10:20] LABS: BASO % 1 % (0-3); EOS # 0.1 x10^3/uL (0.0-0.7); EOS % 2 % (0-3); HEMATOCRIT 34.6 % (39.0-53.0); HEMOGLOBIN 11.8 g/dL (13.0-17.5); LYMPH # 1.5 x10^3/uL (1.0-4.8); LYMPH % 26 % (24-48); MEAN CORPUSCULAR HEMOGLOBIN 33 pg (25-35); MEAN CORPUSCULAR HGB CONC 34 g/dL (31-37); MEAN CORPUSCULAR VOLUME 95 fL (79-100); MONO # 0.5 x10^3/uL (0.0-1.1); MONO % 8 % (0-9); NEUT # 3.7 x10^3uL (1.8-7.7); NEUT % 63 % (31-73); PLATELET COUNT 175 x10^3/uL (140-400); RED BLOOD COUNT 3.63 x10^6/uL (4.30-5.70); WHITE BLOOD COUNT 5.9 x10^3/uL (4.0-11.0)
[2018-03-20 10:31] LABS: ANION GAP 5 (6-14); BLOOD UREA NITROGEN 20 mg/dL (8-26); CALCIUM 9.2 mg/dL (8.5-10.1); CARBON DIOXIDE 30 mmol/L (21-32); CHLORIDE 104 mmol/L (98-107); CREATININE 1.3 mg/dL (0.7-1.3); GFR 53.3; GLUCOSE 240 mg/dL (70-99); POTASSIUM 4.6 mmol/L (3.5-5.1); SODIUM 139 mmol/L (136-145)
[2018-03-20 10:47] LABS: NT-PRO BNP 1626 pg/mL (0-449)
== END | disposition home or self-care (01) ==
LOC: LAB 10:02
DX: I25.10 Atherosclerotic heart disease of native coronary artery without angina pectoris (principal)
CPT/HCPCS: 36415; 80048; 83880; 85025

== ENCOUNTER 2018-06-30 22:52 | Emergency (ER) | payer MEDICARE ==
[2018-06-30] MEDS: LIDO:MAALOX 1:1 20 ML SINGLE DOSE. PO (23:40)
== END 2018-07-01 00:30 | disposition home or self-care (01) ==
LOC: ER 07-01 00:30
DX: K22.8 Other specified diseases of esophagus (principal); E78.00 Pure hypercholesterolemia, unspecified; I11.0 Hypertensive heart disease with heart failure; I50.9 Heart failure, unspecified; E11.9 Type 2 diabetes mellitus without complications; Z88.1 Allergy status to other antibiotic agents; Z88.8 Allergy status to other drugs, medicaments and biological substances
CPT/HCPCS: 99283

== ENCOUNTER → 2018-07-29 | Outpatient (CLI) | payer MEDICARE ==
[2018-06-30 23:30] VITALS: BP 162/75
[~2018-07-29] MED LIST changes: -ACETYLCYSTEINE 20% ORAL SOLN 600 MG/3 ML SYRINGE. PO ONE; -AMLO10TA2 PO; +AMLO10TA6 PO; -AMLO5TAB2 PO; +AMLO5TAB7 PO; -HEPARIN for IV BOLUS 10,000 UNIT/10 ML VIAL. IV ONE; -HEPARIN for IV BOLUS 10,000 UNIT/10 ML VIAL. ONE; -IODIXANOL 320 MG/ML 100 ML VIAL. IART ONE; -IODIXANOL 320 MG/ML 100 ML VIAL. ONE; -LIDOCAINE 2% 20 ML VIAL. IJ ONE; -LIDOCAINE 2% 20 ML VIAL. ONE; -LOSA25TA4 PO; +LOSA25TA5 PO; -LOSA50TA6 PO; +LOSA50TA7 PO; -MIDAZOLAM HCL/PF 2 MG/2 ML VIAL. IV ONE; -MIDAZOLAM HCL/PF 2 MG/2 ML VIAL. ONE; -SODIUM BICARBONATE VIAL 150 MEQ in IV STERILE WATER 1,000 ML IV ONE; +SUCR1ORA5 PO; -fentaNYL PF VIAL 100 MCG/2 ML VIAL IV ONE; -fentaNYL PF VIAL 100 MCG/2 ML VIAL ONE
--- NOTE | 2018-07-29 10:35 | RAD ---
CHEST PA LATERAL Clinical indications: Difficulty SWALLOWING COMPARISON: February 20, 2018. Findings: No acute lung infiltrate or pleural effusion or pulmonary edema or lung mass or pneumothorax is seen. A sternotomy is evident The heart size, pulmonary vasculature, mediastinum and both shiela are otherwise unremarkable. The osseous structures appear intact. Impression: No acute radiographic abnormality is seen. Electronically signed by: Mika Sifuentes MD (07/29/2018 10:32 AM) [facility]
== END | disposition home or self-care (01) ==
LOC: RAD 07:53
PROVIDERS: ATTEND Internal Medicine Gastroenterology
DX: R13.10 Dysphagia, unspecified (principal); I13.0 Hypertensive heart and chronic kidney disease with heart failure and stage 1 through stage 4 chronic kidney disease, or unspecified chronic kidney disease; E11.22 Type 2 diabetes mellitus with diabetic chronic kidney disease; I50.30 Unspecified diastolic (congestive) heart failure; N18.3 Chronic kidney disease, stage 3 (moderate); E78.00 Pure hypercholesterolemia, unspecified; I48.0 Paroxysmal atrial fibrillation; I25.10 Atherosclerotic heart disease of native coronary artery without angina pectoris; K21.9 Gastro-esophageal reflux disease without esophagitis; Z90.49 Acquired absence of other specified parts of digestive tract; Z68.27 Body mass index [BMI] 27.0-27.9, adult; Z82.49 Family history of ischemic heart disease and other diseases of the circulatory system; Z88.1 Allergy status to other antibiotic agents; Z88.3 Allergy status to other anti-infective agents
CPT/HCPCS: 71046

== ENCOUNTER 2018-09-27 09:05 | Emergency (ER) | payer MEDICARE ==
[~2018-09-27] VITALS: Ht 167.6 cm; Wt 83.5 kg
[2018-09-27 09:09] VITALS: BP 149/69
--- NOTE | 2018-09-27 09:34 | PHYS DOC ---
Past Medical History Past Medical History: CHF, Diabetes-Type II, High Cholesterol, Hypertension Additional Past Medical Histor: "brain bleed" 12/2015 Past Surgical History: Tonsillectomy, Other Additional Past Surgical Histo: r gt toe amputation Alcohol Use: None Drug Use: None Adult General Chief Complaint Chief Complaint: BREAST PROBLEM [facility] HPI Patient is a 77 year old female presenting with a breast lump. He is had this for 3 years he thinks that it is about the same size as it has been apparently he says he thinks amiodarone caused that he has discontinued that he had multiple side effects. He woke up this morning he had a sharp intermittent and also some dull pain at the site of the left breast lump when he palpates it. There is no pain at rest she does not have actual chest pain he says his pain is over the lump underneath his nipple. no fever. Review of Systems Review of Systems Constitutional: Denies fever or chills [] Eyes: Denies change in visual acuity, redness, or eye pain Cardiovascular: No additional information not addressed in HPI [] GI: Denies abdominal pain, nausea, vomiting, bloody stools or diarrhea [] Integument: Denies rash or skin lesions [] Neurologic: Denies headache, focal weakness or sensory changes [] All other systems were reviewed and found to be within normal limits, except as documented in this note. Allergies Allergies Allergies Coded Allergies Type Severity Reaction Last Updated Verified amiodarone Allergy Intermediate Hives 04/25/16 Yes ciprofloxacin Allergy Intermediate 03/14/16 Yes dofetilide Allergy Intermediate 03/14/16 Yes glimepiride Allergy Intermediate Photosensitivity 04/25/16 Yes losartan Allergy Intermediate rash 09/11/17 Yes rivaroxaban Allergy Intermediate 09/11/17 Yes Physical Exam Physical Exam Constitutional: Well developed, well nourished, no acute distress, non-toxic appearance. [] HENT: Normocephalic, atraumatic, bilateral external ears normal, oropharynx moist, no oral exudates, nose normal. [] Eyes: PERRLA, EOMI, conjunctiva normal, no discharge. [] Neck: Normal range of motion, no tenderness, supple, no stridor. [] Cardiovascular: Slightly irregular but no definite murmurs Lungs & Thorax: Faint crackles bilateral lung bases Breasts: Left breast just under the nipple at approximately 9:00 there is a 3-4 cm mild to moderate tenderness mobile lump no overlying erythema or induration no focal fluid. There is no axillary tenderness or lymph node palpated Abdomen: Bowel sounds normal, soft, no tenderness, no masses, no pulsatile masses. [] Skin: Warm, dry, no erythema, no rash. [] Back: No tenderness, no CVA tenderness. [] Extremities: No tenderness, no cyanosis, no clubbing, ROM intact, no edema. [] Neurologic: Alert and oriented X 3, normal motor function, normal sensory function, no focal deficits noted. [] Psychologic: Affect normal, judgement normal, mood normal. [] EKG EKG [] Radiology/Procedures Radiology/Procedures [] Course & Med Decision Making Course & Med Decision Making Pertinent Labs and Imaging studies reviewed. (See chart for details) []Patient is a 77-year-old male who has an obvious breast lump on clinical examination. Consideration given to malignancy given his age he needs a mammogram he was instructed to see his doctor within 2 weeks to schedule this. Also he needs follow-up for a mildly elevated blood pressure he is aware of this as well this is definite pain at the site of the breast lump he denies any other exertional symptoms or anything like that this is localized symptom complaint. Dragon Disclaimer Dragon Disclaimer This electronic medical record was generated, in whole or in part, using a voice recognition dictation system. Departure Departure Impression: Primary Impression: Elevated blood pressure reading Additional Impression: Breast mass Disposition: 01 HOME, SELF-CARE Condition: STABLE Patient Instructions: Breast Self-Exam, [id number] Additional Instructions: contact primary doctor for mammogram within two weeks. get bp checked in one month Problem Qualifiers ALESHA REGALADO MD Sep 27, 2018 09:34
== END 2018-09-27 09:30 | disposition home or self-care (01) ==
LOC: ER 09:05
DX: N63.0 Unspecified lump in unspecified breast (principal); E78.00 Pure hypercholesterolemia, unspecified; I11.0 Hypertensive heart disease with heart failure; I50.9 Heart failure, unspecified; E11.9 Type 2 diabetes mellitus without complications; Z88.1 Allergy status to other antibiotic agents; Z88.8 Allergy status to other drugs, medicaments and biological substances
CPT/HCPCS: 99281

== ENCOUNTER → 2019-01-22 | Outpatient (CLI) | payer MEDICARE ==
[~2019-01-22] MED LIST changes: -AMLO10TA6 PO; +AMLO10TA8 PO; +AMLO5TAB10 PO; -AMLO5TAB7 PO; +LOSA-73 PO; -LOSA25TA5 PO; +LOSA25TA54 PO; -LOSA50TA7 PO; -POLY255P PO; +POLY255P11 PO
--- NOTE | 2019-01-22 16:03 | CARD ---
MR#: [id number] Date of Study: 01/22/2019 Ordering Physician: JESSICA DO, Referring Physician: JESSICA DO, Tech: Pauly Urena LUÚL APPROVED REPORT EXAM: Two-dimensional and M-mode echocardiogram with Doppler and color Doppler. Other Information Quality : GoodHR: 70bpm Rhythm : NSR INDICATION CAD 2D DIMENSIONS RVDd2.9 (2.9-3.5cm)Left Atrium(2D)4.1 (1.6-4.0cm) IVSd1.5 (0.7-1.1cm)Aortic Root(2D)3.4 (2.0-3.7cm) LVDd4.8 (3.9-5.9cm)LVOT Diameter2.2 (1.8-2.4cm) PWd1.0 (0.7-1.1cm)LVDs3.0 (2.5-4.0cm) FS (%) 38.4 %SV73.6 ml LVEF(%)65.0 (>50%) M-Mode DIMENSIONS Left Atrium(MM)4.01 (2.5-4.0cm)Aortic Root3.94 (2.2-3.7cm) Aortic Valve AoV Peak Abdirizak.323.0cm/sAoV VTI81.3cm AO Peak GR.41.7mmHgLVOT Peak Abdirizak.81.5cm/s AO Mean GR.26mmHgAVA (VMAX)0.97cm2 ALFREDO (VTI)0.61jl2HB P 1/2 Mvzs381pd Mitral Valve MV E Jifxsjbt100.9cm/sMV E Peak Gr.10mmHg MV DECEL CASO043faGW A Yowzxbfh39.3cm/s MV E Mean Gr.4mmHgE/A Ratio2.7 MV A Gdtrynin117lp Pulmonary Valve PV Peak Bixgsfmv99.4cm/s Tricuspid Valve TR P. Prfgprbv172ui/sRAP WOGPNHCV5ciJw TR Peak Gr.36ngDsRLDZ60wrZe Pulmonary Vein S1 Yooecqzt87.7cm/sD2 Mreycimg24.5cm/s LEFT VENTRICLE The left ventricle is normal size. Proximal septal thickening is noted. The left ventricular systolic function is normal. The Ejection Fraction is 55-60%. There is normal LV segmental wall motion. Trans mitral Doppler flow pattern is Grade III-reversible restrictive diastolic dysfunction. RIGHT VENTRICLE The right ventricle is normal size. There is normal right ventricular wall thickness. The right ventr icular systolic function is normal. ATRIA The left atrium is mildly dilated. The right atrium size is normal. The interatrial septum is intact with no evidence for an atrial septal defect or patent foramen ovale as noted on 2-D or Doppler imagi ng. AORTIC VALVE The aortic valve is moderately to severely calcified. The aortic valve is trileaflet. Doppler and Col or Flow revealed mild aortic regurgitation. There is moderate to severe subvalvular aortic stenosis. Calculated aortic valve area is 0.9 cm2 with maximum pressure gradient of 42 mmHg and mean pressure g radient of 26 mmHg. MITRAL VALVE Mitral annular calcification is mild to moderate. There is no evidence of mitral valve prolapse. Ther e is mild mitral valve stenosis. Calculated mitral valve area is 1.8 cm2 with maximum pressure gradie nt of 10.4 mmHg and mean pressure gradient of 4 mmHg. Doppler and Color-flow revealed mild mitral reg urgitation. TRICUSPID VALVE The tricuspid valve is normal in structure and function. Doppler and Color Flow revealed mild tricusp id regurgitation. There is moderate pulmonary hypertension. The PA pressure was estimated at 53 mmHg. There is no tricuspid valve prolapse or vegetation. There is no tricuspid valve stenosis. PULMONIC VALVE The pulmonary valve is normal in structure and function. Doppler and Color Flow revealed no pulmonic valvular regurgitation. There is no pulmonic valvular stenosis. GREAT VESSELS The aortic root is normal in size. The ascending aorta is Mildly dilated at 3.9cm. The IVC is normal in size and collapses >50% with inspiration. PERICARDIAL EFFUSION There is no evidence of significant pericardial effusion. Critical Notification Critical Value: No <Conclusion> The left ventricular systolic function is normal. The Ejection Fraction is 55-60%. There is normal LV segmental wall motion. Transmitral Doppler flow pattern is Grade III-reversible restrictive diastolic dysfunction. Moderate to severe subvalvular aortic stenosis. Nild aortic regurgitation. There is mild mitral valve stenosis. Mild mitral regurgitation. Mild tricuspid regurgitation. There is moderate pulmonary hypertension. The PA pressure was estimated at 53 mmHg. There is no evidence of significant pericardial effusion. Signed by : Ze Pasnoori, Electronically Approved : 01/22/2019 16:02:35
== END | disposition home or self-care (01) ==
LOC: ECHO 10:36
PROVIDERS: ATTEND Internal Medicine Cardiovascular Disease
DX: I08.3 Combined rheumatic disorders of mitral, aortic and tricuspid valves (principal); I25.10 Atherosclerotic heart disease of native coronary artery without angina pectoris
CPT/HCPCS: 93306

== ENCOUNTER 2019-06-06 07:04 | Emergency (ER) | payer MEDICARE ==
[~2019-06-06] VITALS: Ht 170.2 cm; Wt 77.1 kg
[2019-06-06 07:31] LABS: BASO % 1 % (0-3); EOS # 0.4 x10^3/uL (0.0-0.7); EOS % 7 % (0-3); HEMATOCRIT 30.6 % (39.0-53.0); HEMOGLOBIN 10.4 g/dL (13.0-17.5); LYMPH # 1.3 x10^3/uL (1.0-4.8); LYMPH % 22 % (24-48); MEAN CORPUSCULAR HEMOGLOBIN 32 pg (25-35); MEAN CORPUSCULAR HGB CONC 34 g/dL (31-37); MEAN CORPUSCULAR VOLUME 95 fL (79-100); MONO # 0.4 x10^3/uL (0.0-1.1); MONO % 8 % (0-9); NEUT # 3.7 x10^3/uL (1.8-7.7); NEUT % 63 % (31-73); PLATELET COUNT 154 x10^3/uL (140-400); RED BLOOD COUNT 3.22 x10^6/uL (4.30-5.70); WHITE BLOOD COUNT 5.9 x10^3/uL (4.0-11.0)
--- NOTE | 2019-06-06 07:38 | PHYS DOC ---
Past Medical History Past Medical History: CHF, Diabetes-Type II, High Cholesterol, Hypertension Additional Past Medical Histor: "brain bleed" 12/2015 Past Surgical History: Tonsillectomy, Other Additional Past Surgical Histo: r gt toe amputation, valve replacement 04/16/19 [facility] Alcohol Use: None Drug Use: None Adult General Chief Complaint Chief Complaint: HYPERTENSION [facility] HPI Patient is a 78 year old male who presents with complaining of high blood pressure. Patient had aortic valve replacement at [facility] on March of this year. 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 Patient complaining of occasional episodes of chest tightness that usually happen once a week and last for a few seconds. Patient denies shortness of breath, fever and chills, nausea and vomiting, urinary symptoms, change of appetite or sleep. Patient states he does not feel good overall without mentioning about special problem. Patient had blo od pressure of 158/74 at arrival to ER and states he took 15 mg of lisinopril instead of 10 mg this morning. Review of Systems Review of Systems Constitutional: Denies fever or chills [] Eyes: Denies change in visual acuity, redness, or eye pain [] HENT: Denies nasal congestion or sore throat [] Respiratory: Denies cough or shortness of breath [] Cardiovascular: No additional information not addressed in HPI [] GI: Denies abdominal pain, nausea, vomiting, bloody stools or diarrhea [] : Denies dysuria or hematuria [] Musculoskeletal: Denies back pain or joint pain [] Integument: Denies rash or skin lesions [] Neurologic: Denies headache, focal weakness or sensory changes [] Endocrine: Denies polyuria or polydipsia [] All other systems were reviewed and found to be within normal limits, except as documented in this note. Current Medications Current Medications Current Medications Medications (Trade) Dose Ordered Sig/Ирина Start Time Stop Time Status Last Admin Dose Admin Sodium Polystyrene Sulfonate (Kayexalate) 30 gm 1X ONCE 06/06/19 08:30 06/06/19 08:31 DC 06/06/19 08:37 30 GM Allergies Allergies Allergies Coded Allergies Type Severity Reaction Last Updated Verified amiodarone Allergy Intermediate Hives 04/25/16 Yes ciprofloxacin Allergy Intermediate 03/14/16 Yes dofetilide Allergy Intermediate 03/14/16 Yes glimepiride Allergy Intermediate Photosensitivity 04/25/16 Yes losartan Allergy Intermediate rash 09/11/17 Yes rivaroxaban Allergy Intermediate 09/11/17 Yes Physical Exam Physical Exam Constitutional: Well developed, well nourished, no acute distress, non-toxic appearance. [] HENT: Normocephalic, atraumatic, oropharynx moist. Eyes: PERRLA, EOMI, conjunctiva normal, no discharge. [] Neck: Normal range of motion, no tenderness, supple, no stridor. [] Cardiovascular:Heart rate regular rhythm, no murmur [] Lungs & Thorax: Bilateral breath sounds clear to auscultation [] Abdomen: Bowel sounds normal, soft, no tenderness, no masses, no pulsatile masses. [] Skin: Warm, dry, no erythema, no rash. [] Back: No tenderness, no CVA tenderness. [] Extremities: No tenderness, no cyanosis, no clubbing, ROM intact, no edema. [] Neurologic: Alert and oriented X 3, normal motor function, normal sensory function, no focal deficits noted. [] Psychologic: Affect depressed, judgement normal, mood normal. [] Current Patient Data Vital Signs Vital Signs Date Time Temp Pulse Resp B/P (MAP) Pulse Ox O2 Delivery O2 Flow Rate FiO2 06/06/19 08:24 70 20 98 06/06/19 07:18 97.9 158/68 (98) Room Air 97.9 Lab Values Laboratory Tests Test 06/06/19 07:24 06/06/19 07:40 White Blood Count 5.9 x10^3/uL (4.0-11.0) Red Blood Count 3.22 x10^6/uL (4.30-5.70) L Hemoglobin 10.4 g/dL (13.0-17.5) L Hematocrit 30.6 % (39.0-53.0) L Mean Corpuscular Volume 95 fL (79-100) Mean Corpuscular Hemoglobin 32 pg (25-35) Mean Corpuscular Hemoglobin Concent 34 g/dL (31-37) Red Cell Distribution Width 15.0 % (11.5-14.5) H Platelet Count 154 x10^3/uL (140-400) Neutrophils (%) (Auto) 63 % (31-73) Lymphocytes (%) (Auto) 22 % (24-48) L Monocytes (%) (Auto) 8 % (0-9) Eosinophils (%) (Auto) 7 % (0-3) H Basophils (%) (Auto) 1 % (0-3) Neutrophils # (Auto) 3.7 x10^3/uL (1.8-7.7) Lymphocytes # (Auto) 1.3 x10^3/uL (1.0-4.8) Monocytes # (Auto) 0.4 x10^3/uL (0.0-1.1) Eosinophils # (Auto) 0.4 x10^3/uL (0.0-0.7) Basophils # (Auto) 0.0 x10^3/uL (0.0-0.2) Prothrombin Time 14.1 SEC (11.7-14.0) H Prothrombin Time INR 1.1 (0.8-1.1) Sodium Level 136 mmol/L (136-145) Potassium Level 5.4 mmol/L (3.5-5.1) H Chloride Level 104 mmol/L (98-107) Carbon Dioxide Level 26 mmol/L (21-32) Anion Gap 6 (6-14) Blood Urea Nitrogen 27 mg/dL (8-26) H Creatinine 1.4 mg/dL (0.7-1.3) H Estimated GFR (Cockcroft-Gault) 48.8 BUN/Creatinine Ratio 19 (6-20) Glucose Level 178 mg/dL (70-99) H Calcium Level 9.2 mg/dL (8.5-10.1) Magnesium Level 2.1 mg/dL (1.8-2.4) Total Bilirubin 0.3 mg/dL (0.2-1.0) Aspartate Amino Transferase (AST) 20 U/L (15-37) Alanine Aminotransferase (ALT) 32 U/L (16-63) Alkaline Phosphatase 83 U/L (46-116) Creatine Kinase 67 U/L (39-308) Troponin I Quantitative 0.498 ng/mL (0.000-0.055) NN-Kdo-P-Type Natriuretic Peptide 1890 pg/mL (0-449) H Total Protein 8.3 g/dL (6.4-8.2) H Albumin 3.5 g/dL (3.4-5.0) Albumin/Globulin Ratio 0.7 (1.0-1.7) L Urine Collection Type Unknown Urine Color Yellow Urine Clarity Clear Urine pH 5.5 Urine Specific [place] 1.010 Urine Protein 30 mg/dL (NEG-TRACE) Urine Glucose (UA) Negative mg/dL (NEG) Urine Ketones (Stick) Negative mg/dL (NEG) Urine Blood Negative (NEG) Urine Nitrite Negative (NEG) Urine Bilirubin Negative (NEG) Urine Urobilinogen Dipstick 0.2 mg/dL (0.2 mg/dL) Urine Leukocyte Esterase Negative (NEG) Urine RBC 0 /HPF (0-2) Urine WBC 1-4 /HPF (0-4) Urine Squamous Epithelial Cells Occ /LPF Urine Bacteria 0 /HPF (0-FEW) Laboratory Tests 06/06/19 07:24 Laboratory Tests 06/06/19 07:24 EKG EKG EKG interpreted by me. EKG at 0714 showed normal sinus rhythm at rate of 74, prolonged VT interval 330, right bundle branch block, no acute ST and T-wave abnormalities. Radiology/Procedures Radiology/Procedures [facility] [address] [place] [address] IMAGING REPORT Signed PATIENT: ALEJANDRINA GRAY ACCOUNT: [id number] : 1940 LOCATION: ER AGE: 78 SEX: M EXAM STATUS: REG ER ORD. PHYSICIAN: ANDREW RANKIN MD REASON: chest tightness, S/P VALVE REPLACEMENT MARCH 2019 PROCEDURE: CHEST PA & LATERAL CHEST PA LATERAL History: Chest tightness Comparison: 07/29/2018 two-view chest x-ray exam. Findings: The cardiomediastinal silhouette is normal. Transcatheter aortic valve replacement is seen. Sternal wires are present. Pulmonary vasculature is normal. Minimal interstitial thickening involving the lingula is suggested. No focal consolidation. No pleural effusion or pneumothorax is seen. There is no acute bone abnormality. IMPRESSION: No acute cardiopulmonary process. No significant change in pulmonary aeration. Electronically signed by: Jared Bryant MD (06/06/2019 7:42 AM) [facility] DICTATED and SIGNED BY: JARED BRYANT MD DATE: 06/06/19 0742 Course & Med Decision Making Course & Med Decision Making Pertinent Labs and Imaging studies reviewed. (See chart for details) Evaluation of patient in ER showed 78-year-old male patient presented to ER with complaining of elevation of blood pressure for the last 10 days after changing his medication by his surveyor geodetic. Patient usually taking lisinopril 10 mg daily and took 15 mg today blood pressure of 158 at arrival to ER that gradually decreased to 132/68. Patient has chronic elevation of troponin and BNP and renal function test and currently taking banana. Potassium was 5.4 and patient had 1 dose of Kayexalate and was advised to take extra none. Patient was advised to take lisinopril 5 mgx3 pills daily or takes prescribed 20 mg lisinopril daily and follow up with his primary care physician. Dragon Disclaimer Dragon Disclaimer This electronic medical record was generated, in whole or in part, using a voice recognition dictation system. Departure Departure Impression: Primary Impression: Uncontrolled hypertension Additional Impressions: Elevated troponin Type 2 diabetes mellitus Chronic renal insufficiency Hyperkalemia Chronic CHF Disposition: HOME, SELF-CARE (at 0 832) Condition: IMPROVED Referrals: WOODROW ESPINOZA (PCP) Patient Instructions: Form - Blood Pressure Record Sheet, How to Take Your Blood Pressure, [id number], Hyperkalemia, Hypertension, Managing Your High Blood Pressure Additional Instructions: Take 15 mg of home lisinopril or prescribed 20 mg of lisinopril, do not take both of them Follow-up with your primary care physician in 2-3 days Return to ER if not getting better Do not take banana Scripts Lisinopril (LISINOPRIL) 20 Mg Tablet 1 TAB PO DAILY, #30 TAB 0 Refills Prov: ANDREW RANKIN MD 06/06/19 Problem Qualifiers Additional Impressions: Type 2 diabetes mellitus Diabetes mellitus halfway insulin use: 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
--- NOTE | 2019-06-06 07:45 | RAD ---
CHEST PA LATERAL History: Chest tightness Comparison: 07/29/2018 two-view chest x-ray exam. Findings: The cardiomediastinal silhouette is normal. Transcatheter aortic valve replacement is seen. Sternal wires are present. Pulmonary vasculature is normal. Minimal interstitial thickening involving the lingula is suggested. No focal consolidation. No pleural effusion or pneumothorax is seen. There is no acute bone abnormality. IMPRESSION: No acute cardiopulmonary process. No significant change in pulmonary aeration. Electronically signed by: Jared Green MD (06/06/2019 7:42 AM) [facility]
[2019-06-06 07:47] LABS: CALCIUM 9.2 mg/dL (8.5-10.1); CREATININE 1.4 mg/dL (0.7-1.3); GFR 48.8; POTASSIUM 5.4 mmol/L (3.5-5.1)
[2019-06-06 07:50] LABS: PROTHROMBIN TIME PATIENT 14.1 SEC (11.7-14.0)
[2019-06-06 07:51] LABS: BILIRUBIN,URINE NEGATIVE (NEG); CLARITY,URINE CLEAR; COLOR,URINE YELLOW; NITRITE,URINE NEGATIVE (NEG); PH,URINE 5.5; PROTEIN,URINE 30 mg/dL (NEG-TRACE); UROBILINOGEN,URINE 0.2 mg/dL (0.2 mg/dL)
[2019-06-06 07:55] LABS: ALBUMIN 3.5 g/dL (3.4-5.0); ALBUMIN/GLOBULIN RATIO 0.7 (1.0-1.7); MAGNESIUM 2.1 mg/dL (1.8-2.4); TOTAL BILIRUBIN 0.3 mg/dL (0.2-1.0); TOTAL PROTEIN 8.3 g/dL (6.4-8.2)
[2019-06-06 08:03] LABS: BACTERIA,URINE 0 /HPF (0-FEW); RBC,URINE 0 /HPF (0-2); SQUAMOUS EPITHELIAL CELL,UR OCC /LPF
[2019-06-06 08:24] VITALS: BP 132/61
[2019-06-06] MEDS ORDERED: SODIUM POLYSTYRENE SULFON/SORB 15 GM/60 ML ORAL.SUSP PO ONE (08:30)
[2019-06-06] MEDS ORDERED: LISI-334 PO (08:34)
--- NOTE | 2019-06-06 08:46 | EKG ---
[facility] [address] [place] [address] Test Date: 2019-06-06 Test Time: 07:14:45 Pat Name: ALEJANDRINA GRAY Department: Room: Gender: M Outpatient Physical Therapist: : 1940 Requested By: ANDREW RANKIN Order Number: [id number] Reading MD: Measurements Intervals [place] Rate: 74 P: 0 AK: 330 QRS: 9 QRSD: 134 T: -21 QT: 418 QTc: 470 Interpretive Statements SINUS RHYTHM PROLONGED AK INTERVAL RIGHT BUNDLE BRANCH BLOCK ABNORMAL ECG RI6.01 No previous ECG available for comparison
== END 2019-06-06 08:49 | disposition home or self-care (01) ==
LOC: ER 07:04
DX: I13.0 Hypertensive heart and chronic kidney disease with heart failure and stage 1 through stage 4 chronic kidney disease, or unspecified chronic kidney disease (principal); E11.22 Type 2 diabetes mellitus with diabetic chronic kidney disease; N18.9 Chronic kidney disease, unspecified; I50.9 Heart failure, unspecified; Z79.4 Long term (current) use of insulin; E87.5 Hyperkalemia; R79.89 Other specified abnormal findings of blood chemistry; E78.00 Pure hypercholesterolemia, unspecified; Z88.1 Allergy status to other antibiotic agents; Z88.8 Allergy status to other drugs, medicaments and biological substances
CPT/HCPCS: 36415; 71046; 80053; 81001; 82550; 83735; 83880; 84484; 85025; 85610; 93005; 99285-25

== ENCOUNTER 2021-02-10 08:33 | Emergency (ER) | payer MEDICARE ==
[~2021-02-10] VITALS: Ht 170.2 cm; Wt 79.0 kg
[~2021-02-10 08:33] MED LIST changes: +ACET-2061 PO; -ACET325T16 PO; +ACET325T21 PO; +AMLO-186 PO; +AMLO-187 PO; -AMLO10TA8 PO; -AMLO5TAB10 PO; +CARV25TA PO; -CLIN150C14 PO; +CLIN150C15 PO; -CLIN300C8 PO; +CLIN300C9 PO; +CLOP75TA PO; +CYAN100031 PO; +FERR325T14 PO; +FOLI0.8C PO; +HUM100VI5 SQ; +ISOS30TA68 PO; +LISI-517 PO; +LISI20TA18 PO; -MECL12.52 PO; +MECL12.582 PO; +MULT-460 PO; +SENN1TAB99 PO
--- NOTE | 2021-02-10 08:54 | ED.ADGEN ---
Past Medical History Past Medical History: CHF, Diabetes-Type II, High Cholesterol, Hypertension Additional Past Medical Histor: "brain bleed" 12/2015 Past Surgical History: Pacemaker, Tonsillectomy, Other Additional Past Surgical Histo: r gt toe amputation, valve replacement 04/16/19 [facility], [place] Smoking Status: Never Smoker Alcohol Use: None Drug Use: None General Adult EDM: Chief Complaint: FOOT INJURY PAIN HPI: HPI: Patient is a 80-year-old male who arrives ambulatory to the emergency department complaining of a left foot pain. Patient reports his pain is been ongoing now for several days. Patient points to the medial aspect of his left foot. The patient states he is diabetic and has neuropathy however he has not had any injury. He further denies any rash or fever. He does note that his foot appears to be swollen by his observations however he is unaware why this is. He denies injury or illness otherwise. He is awake, alert and nontoxic-appearing. Review of Systems: Review of Systems: Constitutional: Denies fever or chills. [] Eyes: Denies change in visual acuity. [] HENT: Denies nasal congestion or sore throat. [] Respiratory: Denies cough or shortness of breath. [] Cardiovascular: Denies chest pain or edema. [] GI: Denies abdominal pain, nausea, vomiting, bloody stools or diarrhea. [] : Denies dysuria. [] Musculoskeletal: Reports extremity pain with swelling restricted to left foot. Denies back pain or joint pain. [] Integument: Denies rash. [] Neurologic: Denies headache, focal weakness or sensory changes. [] Endocrine: Denies polyuria or polydipsia. [] Lymphatic: Denies swollen glands. [] Psychiatric: Denies depression or anxiety. [] Allergies: Allergies: Allergies Coded Allergies Type Severity Reaction Last Updated Verified amiodarone Allergy Intermediate Hives 04/25/16 Yes ciprofloxacin Allergy Intermediate 03/14/16 Yes dofetilide Allergy Intermediate 03/14/16 Yes glimepiride Allergy Intermediate Photosensitivity 04/25/16 Yes losartan Allergy Intermediate rash 09/11/17 Yes rivaroxaban Allergy Intermediate 09/11/17 Yes Physical Exam: PE: Constitutional: Well developed, well nourished, no acute distress, non-toxic appearance. [] HENT: Normocephalic, atraumatic, bilateral external ears normal, oropharynx moist, no oral exudates, nose normal. [] Eyes: PERRLA, EOMI, conjunctiva normal, no discharge. [] Neck: Normal range of motion, no tenderness, supple, no stridor. [] Cardiovascular:Heart rate regular rhythm, no murmur [] Lungs & Thorax: Bilateral breath sounds clear to auscultation [] Abdomen: Bowel sounds normal, soft, no tenderness, no masses, no pulsatile masses. [] Skin: Warm, dry, no erythema, no rash. [] Back: No tenderness, no CVA tenderness. [] Extremities: Patient has minimal swelling at the left foot. There is no erythema or external signs of injury. No tenderness, no cyanosis, no clubbing, ROM intact, no edema. [] Neurologic: Alert and oriented X 3, normal motor function, normal sensory function, no focal deficits noted. [] Psychologic: Affect normal, judgement normal, mood normal. [] Current Patient Data: Vital Signs: Vital Signs Date Time Temp Pulse Resp B/P (MAP) Pulse Ox O2 Delivery O2 Flow Rate FiO2 02/10/21 08:40 97.5 75 18 152/68 (96) 99 97.5 EKG: EKG: [] Heart Score: C/O Chest Pain: No Risk Factors: Risk Factors: DM, Current or recent (<one month) smoker, HTN, HLP, family history of CAD, obesity. Risk Scores: Score 0 - 3: 2.5% MACE over next 6 weeks - Discharge Home Score 4 - 6: 20.3% MACE over next 6 weeks - Admit for Clinical Observation Score 7 - 10: 72.7% MACE over next 6 weeks - Early Invasive Strategies Radiology/Procedures: Radiology/Procedures: [] Impression: [facility] [address] [place] [address] IMAGING REPORT Signed PATIENT: ALEJANDRINA GRAY ACCOUNT: [id number] : 1940 LOCATION: ER AGE: 80 SEX: M EXAM STATUS: REG ER ORD. PHYSICIAN: MORRO FLORES DO REASON: Medial pain PROCEDURE: FOOT LEFT 3V EXAM: XR FOOT_LEFT 3 VIEWS 02/10/2021 8:55 AM CLINICAL INDICATION: Medial pain COMPARISON: Lateral view from left foot radiograph 07/21/2016 TECHNIQUE: 3 views of the left foot FINDINGS: The bones are demineralized. There is no acute fracture. Alignment is normal. Mild joint space narrowing at the great toe MTP joint. There are vascular calcifications. A 6 mm linear radiopaque structure projects over the third and fourth metatarsals and was present on 07/21/2016. No focal soft tissue abnormality. IMPRESSION: 1. No acute osseous abnormality. 2. Osteopenia. Electronically signed by: Martha Licea MD (02/10/2021 9:35 AM) [id number] DICTATED and SIGNED BY: MARTHA LICEA MD DATE: 02/10/21 [id number] Course & Med Decision Making: Course & Med Decision Making Pertinent Labs and Imaging studies reviewed. (See chart for details) The patient remains awake, alert and in no acute distress. Patient does not have any acute findings of a fracture or anatomical irregularity on plain film. 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 I advised that he follow-up with a specialized language instructor and/or orthopedist of his choice for ongoing management. Have also asked that he follow-up with his primary care physician and consider treatment for neuropathy as he takes nothing now. The patient understands and has agreed to do so. He is nontoxic-appearing and stable for discharge Ana Disclaimer: Ana Disclaimer: This electronic medical record was generated, in whole or in part, using a voice recognition dictation system. Departure Departure Impression: Primary Impression: Neuropathic pain of left foot Disposition: 01 DC HOME SELF CARE/HOMELESS Condition: GOOD Referrals: WOODROW ESPINOZA (PCP) Patient Instructions: Pain, Neuropathic Scripts Tramadol Hcl (ULTRAM) 50 Mg Tablet 50 MG PO Q6HRS PRN for PAIN for 3 Days, #12 TAB 0 Refills Prov: MORRO FLORES DO 02/10/21 MORRO FLORES DO Feb 10, 2021 08:54
--- NOTE | 2021-02-10 09:37 | RAD ---
EXAM: XR FOOT_LEFT 3 VIEWS 02/10/2021 8:55 AM CLINICAL INDICATION: Medial pain COMPARISON: Lateral view from left foot radiograph 07/21/2016 TECHNIQUE: 3 views of the left foot FINDINGS: The bones are demineralized. There is no acute fracture. Alignment is normal. Mild joint s pace narrowing at the great toe MTP joint. There are vascular calcifications. A 6 mm linear radiopaqu e structure projects over the third and fourth metatarsals and was present on 07/21/2016. No focal sof t tissue abnormality. IMPRESSION: 1. No acute osseous abnormality. 2. Osteopenia. Electronically signed by: Martha Licea MD (02/10/2021 9:35 AM) [id number]
[2021-02-10] MEDS ORDERED: TRAM-48 PO (09:43)
[2021-02-10 09:52] VITALS: BP 152/68
== END 2021-02-10 09:51 | disposition home or self-care (01) ==
LOC: ER 08:33
DX: G62.9 Polyneuropathy, unspecified (principal); M79.672 Pain in left foot; R60.0 Localized edema; E11.40 Type 2 diabetes mellitus with diabetic neuropathy, unspecified; I11.0 Hypertensive heart disease with heart failure; I50.9 Heart failure, unspecified; E78.00 Pure hypercholesterolemia, unspecified; Z95.0 Presence of cardiac pacemaker; Z98.890 Other specified postprocedural states; Z90.89 Acquired absence of other organs; Z88.1 Allergy status to other antibiotic agents; Z88.8 Allergy status to other drugs, medicaments and biological substances
CPT/HCPCS: 73630; 99283